=== PATIENT | male | born 1995 ===

== ENCOUNTER 2018-04-21 00:03 | Observation (INO) | payer SELFPAY ==
[2018-04-21] MEDS ORDERED: LORazepam 2 MG/ML INJ IVP ONE (00:10)
[2018-04-21] MEDS ORDERED: NS 1,000 ML IV ONE ×2 (00:10→00:11)
--- NOTE | 2018-04-21 00:14 | EDPHY ---
H & P Time Seen by Provider: 04/21/18 00:12 HPI/ROS: HPI CHIEF COMPLAINT: M1 hold, overdose, drank 2 shots of antifreeze (ethylene and Diethylene Glycol), additionally multiple pills up to 40 of Doxylamine HISTORY OF PRESENT ILLNESS: 22-year-old male presents emergency room on M1 hold by EMS for an overdose. Approximately over an hour ago he drank 2 shots of antifreeze, additionally took approximately 40 pills of Doxylamine. He presents emergency room tachycardic and agitated. He received 5 mg IV Versed by EMS. He states he did this to kill himself. According to EMS he does have a long history of mental illness. Here in the emergency room he appears agitated, tachycardic, has a hard time answering my questions. He is protecting his airway. He is not vomiting. Past Medical History: Unknown significant medical history however history depression Past Surgical History: Unknown Social History: Unknown Family History: Unknown ROS REVIEW OF SYSTEMS: Limited due to patient's mental state. Exam Constitutional agitated triage nursing summary reviewed, vital signs reviewed, awake/alert. Eyes normal conjunctivae and sclera, EOMI, PERRLA. HENT normal inspection, atraumatic, moist mucus membranes, no epistaxis, neck supple/ no meningismus, no raccoon eyes. Respiratory clear to auscultation bilaterally, normal breath sounds, no respiratory distress, no wheezing. Cardiovascular tachycardic, regular rhythm, no murmur, no edema, distal pulses normal. Gastrointestinal soft, non-tender, no rebound, no guarding, normal bowel sounds, no distension, no pulsatile mass. Genitourinary no CVA tenderness. Musculoskeletal no midline vertebral tenderness, full range of motion, no calf swelling, no tenderness of extremities, no meningismus, good pulses, neurovascularly intact. Skin pink, warm, & dry, no rash, skin atraumatic. Neurologic agitated, moves all 4 extremities equally, motor intact, sensory intact, CN II-XII intact, normal cerebellar, normal vision, normal speech. Psychiatric normal mood/affect. Heme/Lymph/Immune no lymphadenopathy. Differential Diagnosis: Includes but is not limited to in a particular order anticholinergic syndrome, acute agitation, acute intoxication, ethylene glycol poisoning Medical Decision Making: Plan for this patient 2 large-bore IVs, IV fluid bolus , IV Ativan for agitation, EKG, blood work, electrolytes, Tylenol and salicylate level. Re-evaluation: I spoke with poison Control at 12:26 a.m.. Discussed the case in detail. 1. They would like to monitor electrolytes every 3-4 hours per serial BMPs to watch bicarb. Bicarb is low may need to start treatment with formepizole, 2. 16 hr of Q 3 hr BMPs. 3. Additionally watch for QRS prolongation 4. Watch for anticholinergic syndrome IV fluids and IV benzo. 5. Send methanol and ethylene glycol send out. 6. Check serum alcohol level. 7. 16 hour Observation. Case [id number]. EKG interpretation by me on record in [facility] system. Impression time of EKG 0034, sinus tach 119 QRS noted 106. QT noted 371. No acute ischemia. Serum alcohol 0. Patient's bicarb noted to be normal on the chemistry. Will repeat his chemistry in 3 hr. Repeat EKG Spoke with Dr. Dickey who agrees to admit. Went over in detail tox recommendations. EKG interpretation by me on record in [facility] system. Impression time of EKG 2:15 a.m. This is a repeat EKG for QRS prolongation. QRS is 105. Sinus tach of 119. The QRS has went down from the previous EKG. QT 366 Critical Care: Total Critical Care Time Spent Managing this Patient: 65 Minutes. This time was spent Exclusively with this patient. This Care was exclusive of procedures. The Organ System/life at risk was neurological, cardiovascular, renal This Patient was in Critical Condition because suicide attempt with drinking Anti-freeze, Unisom OD. Source: Patient, EMS Constitutional: Initial Vital Signs Temperature (C) 37.9 C 04/21/18 00:12 Heart Rate 127 H 04/21/18 00:12 Respiratory Rate 14 04/21/18 00:12 Blood Pressure 149/85 H 04/21/18 00:12 O2 Sat (%) 96 04/21/18 00:12 O2 Delivery Mode Room Air Allergies/Adverse Reactions: No Known Allergies Allergy (Unverified 12/03/09 14:03) Home Medications: Medication Instructions Recorded Ibuprofen [Motrin (*)] 200 - 400 mg PO Q4H PRN 04/21/18 Medical Decision Making - Data Points Laboratory Results: Laboratory Results 04/21/18 00:25 04/21/18 00:25 Medications Given: Discontinued Medications Sodium Chloride (Ns) 1,000 mls @ 0 mls/hr IV ONCE ONE PRN Reason: Wide Open Stop: 04/21/18 00:11 Last Admin: 04/21/18 00:37 Dose: 1,000 mls Sodium Chloride (Ns) 1,000 mls @ 0 mls/hr IV ONCE ONE PRN Reason: Wide Open Stop: 04/21/18 00:12 Last Admin: 04/21/18 00:37 Dose: 1,000 mls Sodium Chloride (Ns) 1,000 mls @ 150 mls/hr IV CONT KATHRYN Stop: 10/18/18 02:14 Last Admin: 04/21/18 03:47 Dose: 1,000 mls Lorazepam (Ativan Injection) 1 mg IVP EDNOW ONE Stop: 04/21/18 00:11 Last Admin: 04/21/18 00:37 Dose: 1 mg Lorazepam (Ativan) 0.5 - 1 mg PO Q8HRS PRN PRN Reason: Anxiety, Able to Take PO Stop: 10/18/18 02:00 Last Admin: 04/21/18 21:02 Dose: 0.5 mg Potassium Chloride (Klor-Con) 40 meq PO ONCE ONE Stop: 04/21/18 10:57 Last Admin: 04/21/18 11:24 Dose: 40 meq Departure - Departure Disposition: [facility] Acute Clinical Impression: Overdose Qualifiers: Encounter type: initial encounter Injury intent: intentional self-harm Qualified Code(s): T50.902A - Poisoning by unspecified drugs, medicaments and biological substances, intentional self-harm, initial encounter Suicidal behavior Qualifiers: Attempted self-injury: with attempted self-injury Qualified Code(s): T14.91XA - Suicide attempt, initial encounter Condition: Critical
[2018-04-21 00:49] LABS: PLATELET COUNT 217 10^3/uL (150-400)
[2018-04-21] MEDS ORDERED: ONDANSETRON 4 MG/2 ML VIAL IVP PRN (02:01)
[2018-04-21] MEDS ORDERED: NS 1,000 ML IV SCH (02:15)
[2018-04-21] MEDS: LORazepam 0.5 MG TAB PO PRN ×2 (03:46→21:02)
--- NOTE | 2018-04-21 04:50 | GHP ---
DATE OF ADMISSION: 04/21/2018 PRIMARY CARE PHYSICIAN: Patient without a PCP listed. SOURCE: The patient provides history, is fair historian. EMR was reviewed and case discussed with ED provider. CHIEF COMPLAINT: Overdose, intentional with antifreeze and doxylamine. HISTORY OF PRESENT ILLNESS: This is a 22-year-old gentleman with past medical history significant for depression and suicide attempt 2 years ago by cutting his right arm who presents to the emergency department this morning via EMS after his brother returned home where they share an apartment with a note left behind. The patient reports that he took 2 shots of antifreeze with ethylene and diethylene glycol, as well as up to 40 tabs of doxylamine in an attempt to end his life. The patient denies any chest pain, shortness of breath, palpitations, musculoskeletal conditions, nausea, vomiting, abdominal pain, diarrhea. REVIEW OF SYSTEMS: A 10-point review of systems is negative except as noted above. ALLERGIES: No known drug allergies. HOME MEDICATIONS: Patient denies. PAST MEDICAL HISTORY: Significant for depression. The patient is not on any current medications or counseling. He does have history of suicide attempt 2 years ago by cutting his right arm as noted above. PAST SURGICAL HISTORY: Patient reports that he went to [place] for liposuction to treat his gynecomastia. FAMILY HISTORY: Negative for diabetes, CAD, psychiatric illness or suicide attempts. SOCIAL HISTORY: Patient lives with his brother. He denies any tobacco or alcohol. He does use rare marijuana. CODE STATUS: Full due to patient being on M1 hold following suicide attempt. PHYSICAL EXAMINATION: VITAL SIGNS: Upon arrival to the emergency department, blood pressure 149/85, heart rate 127, respiratory rate 14, O2 saturation 96% on room air, temperature 37.9. Vitals currently available: Blood pressure 128/ 101, heart rate 112 mm, respiratory rate 16, O2 saturation 94% on room air with temperature 37.5. GENERAL: No acute distress. The patient is lying in bed, but intermittently a little restless. He is cooperative. HEAD: Normocephalic , atraumatic. EYES: Extraocular muscles are intact. The patient does have a little bit of vertical gaze nystagmus. Pupils are slightly dilated, round, with decreased reactivity to light bilaterally. Some photophobia. No scleral icterus or conjunctival injection. ENT: Mucous membranes are quite dry. Lips are chapped and cracked. Dentition in fair condition. NECK: Supple. Trachea midline. CV: Tachycardic in the 100s. No murmurs, rubs, or gallops appreciated. RESPIRATORY: Lungs clear to auscultation bilaterally. No wheezes , rales, or rhonchi. Unlabored breathing. ABDOMEN: Obese, soft, nontender to palpation. No rebound, guarding, or masses appreciated. : No suprapubic tenderness to palpation. No Stanton catheter in place. EXTREMITIES: No cyanosis , clubbing, or edema appreciated. 2+ pedal pulses. NEURO: Grossly nonfocal. Moves all extremities. Patient does have a resting tremor in both hands and the nystagmus as noted above. PSYCH: Patient still remains depressed but he denies any active plans to harm himself at this time. Affect is quite flat and he does have some psychomotor delay in response to questions. LABORATORY STUDIES: WBC is 8.78, H and H 16.3 and 45.0, MCV 84.1, platelet count is 217. No bands. ABG; pH is 7.45, pCO2 32, PO2 79, bicarb is 22, O2 saturation 97%. Base excess -0.8. Sodium 143, potassium 4.0, chloride 108, CO2 is 22, anion gap 13, BUN 13, creatinine 0.7. GFR greater than 60, glucose 68, calcium 8.9, total bilirubin is 1.9, unconjugated 1.6. ALT is 42, AST 31, alkaline phosphatase 58, total protein 7.3, albumin 4.3. Repeat BMP is pending. Tox screen: U-tox is negative. Ethyl alcohol less than 10. Salicylates less than 1.0. Acetaminophen less than 10. Ethylene glycol, propylene glycol, methyl alcohol quant is pending and sent to [facility] for send-out rapid testing. EKG reviewed myself showing sinus tachycardia with Q-waves in the inferolateral leads. QTc is 523, QRS 106. Repeat EKG did not cross over, so I will try to obtain those records from the ED. ASSESSMENT AND PLAN: A 22-year-old gentleman with history of depression, previous suicide attempt 2 years ago, presents to the ED after he was found having ingested 40 tabs of doxylamine and several shots of antifreeze in attempt to end his life. 1. Ethylene glycol ingestion, doxylamine overdose, suicide attempt, depression. Plan: The patient admitted to ICU on an M1 hold for close monitoring. He is on suicide watch at this point. He does not endorse active desire or plan to harm himself currently. Psychiatry consultation in the morning as per day team. At this time, we will plan to follow along with Poison Control recommendations for q.3-hour bumps, monitoring bicarb status closely, as well as for any QRS prolongation. Regarding his ethylene glycol ingestion, he may require treatment with fomepizole for any acute changes. If his ethylene glycol testing returns positive from the [facility], he will require 16 hours of close ICU monitoring before he can be considered for placement in the inpatient psychiatric facility. Regarding doxylamine toxicity , we will need to monitor patient closely given his tachycardia, agitation, and for anticholinergic side effects. He has required some Ativan for his agitation. This will be made available p.r.n. 2. Hypoglycemia was reviewed with the ED provider with plans to give the patient some juice. We will plan to recheck glucose. BMP is pending and will continue to monitor closely. Patient without aspiration risk and so will continue with a regular diet as tolerated. 3. Fluid, electrolyte, nutrition. IV fluids, normal saline, electrolyte monitoring. Replacement if needed. Diet as tolerated. 4. Prophylaxis. SCDs. Low DVT risk. Holding anticoagulation. 5. Cost code status is full at this time. Patient is on an M1 hold. 6. Disposition. Patient admitted to observation status in ICU while we await results of the ethylene, propylene glycol testing from [facility], as well as for resolution of patient's anticholinergic side effects from the doxylamine. ADDENDUM - follow up call placed to poison Control after [facility] result on ethylene glycol level were available. Patient had a level of 8 with the reference range of less than 3 being normal. I spoke with [facility] and poison Control who conferred with on the on-call drawing frame tender. Given that patient had taken a combination of ethylene glycol and di ethylene glycol they do recommend that patient be monitored for full 16 hr with serial BMPs due to the fact that diethylene glycol cannot be measured. They recommend observing for any significant shifts in drop in bicarb and call back if there is any acute changes for consideration of treatment. /[id number]/MODL MTDD
--- NOTE | 2018-04-21 06:59 | CPEKG ---
Test Reason : OPEN Blood Pressure : / mmHG Vent. Rate : 119 BPM Atrial Rate : 119 BPM P-R Int : 141 ms QRS Dur : 106 ms QT Int : 371 ms P-R-T Axes : 057 095 000 degrees QTc Int : 523 ms Sinus tachycardia Inferior infarct, old Lateral leads are also involved Prolonged QT interval Confirmed by Timbo King ([id number]) on 04/21/2018 6:58:45 AM Referred By: Confirmed By:Timbo King
--- NOTE | 2018-04-21 09:51 | ASMTCMCOM ---
CM Note CM Note Notes: 22yr old male admitted for OD, Suicide attempt. He had a previous attempt 2yrs ago due to cutting. Patient lives with his brother. No PCP, medications or mental health connection. TLC to eval when medically clear. CM to follow. Date Signed: 04/21/2018 09:51 AM Electronically Signed By:Maricel Glass LCSW
[2018-04-21] MEDS ORDERED: POTASSIUM CL 20 MEQ TAB PO ONE (10:56)
--- NOTE | 2018-04-21 10:59 | HOSPPROG ---
Hospitalist Progress Note Assessment/Plan: # ethylene and diethylene overdose - level 8 - cont Q3 BMPs - no HD at this point # mild acidosis - suspect more d/t NS as AG low - stop NS, follow closely # doxylamine overdose - may be causing visual hallucinations - QT ok; mild tachycardia - follow on tele # suicide attempt - cont M1 # hypoK - replete Subjective: mild visual hallucinations Objective: Vital Signs Temp Pulse Resp BP Pulse Ox 37.0 C 91 20 148/69 H 96 04/21/18 07:33 04/21/18 10:00 04/21/18 10:00 04/21/18 10:00 04/21/18 10:00 Laboratory Results 04/21/18 09:35 04/20/18 04/21/18 04/22/18 05:59 05:59 05:59 Intake Total 2200 Output Total 850 Balance 1350 - Physical Exam Constitutional: no apparent distress, appears nourished Cardiovascular: no murmur, rub, or gallop, tachycardia, No systolic murmur, No irregularly irregular, No diastolic murmur Respiratory: no respiratory distress, no rales or rhonchi, clear to auscultation Gastrointestinal: soft, non-tender abdomen, no palpable masses, No guarding, No rebound, No distension ICD10 Worksheet Patient Problems: Problems Problem Status Onset Overdose Acute Suicidal behavior Acute
--- NOTE | 2018-04-21 12:01 | GCON ---
[facility] CONSULTATION REASON FOR ADMISSION: Suicide attempt, ingestion of ethylene glycol and doxylamine. HISTORY OF PRESENT ILLNESS: The patient is a very pleasant 22-year-old male with a past medical hist ory of depression. He has had a previous history of suicide attempt 2 years prior. He presented wit h an intentional overdose using antifreeze and 40 tabs of doxylamine. He apparently took 2 shots of antifreeze. The antifreeze had a combination of ethylene and diethylene glycol. In discussion with the patient, he states that overall he feels reasonably well. He is still having hallucinations, bot h visual and auditory. He denies any chest pain, pleuritic-type chest pain or angina equivalent. Th ere is no fever or night sweats. There is no blurred vision or double vision. REVIEW OF SYSTEMS: A 10-point review of systems is performed and negative with the exception of what is listed in HPI. PAST MEDICAL HISTORY: Significant for depression and prior previous suicide attempt. FAMILY HISTORY: Noncontributory. SOCIAL HISTORY: No history of tobacco use. No history of alcohol use. Occasional marijuana use. Luis Carlos askew lives with his brother. Has good family support. PHYSICAL EXAM: VITAL SIGNS: Blood pressure is 148/69, pulse 91, respirations 20, temperature is 37. 0, oxygen saturation 96% on 4 L. GENERAL: He is a well-developed, well-nourished, 22-year-old [place] male who is resting comfortably in no acute distress. HEENT: Eyes are PERRLA, EOMI. Throat charline ws no erythema or tonsillar hypertrophy. NECK: Supple. No cervical adenopathy. HEART: Regular ra te and rhythm without murmurs, rubs, gallops. LUNGS: Clear to auscultation. No wheeze or rhonchi. ABDOMEN: Soft, nontender. Bowel sounds are present in all 4 quadrants. EXTREMITIES: No clubbing, cyanosis, or edema. LABORATORIES: White count is 8.7, hemoglobin 16, hematocrit 45, platelet count 217. Sodium 141, pot assium 3.2, chloride 115, CO2 is 18, BUN 6, creatinine 0.5, glucose is 72. Urine drug screen is nega tive. Alcohol level is less than 10. Methyl alcohol quantitative is currently pending. Arterial bl ood gas with pH 7.45, pCO2 of 32, pO2 of 79, bicarb 23, oxygen saturation 97%. IMPRESSION: 1. Suicide attempt. 2. Acute poisoning, ethylene glycol and diethylene glycol as well as doxylamine. 3. History of depression. RECOMMENDATIONS: 1. Agree with M1 hold. 2. Will follow protocol per Poison Control, which is recommended close monitoring for 16 hours follo wing chemistries. 3. DVT and PE prophylaxis. 4. Stress ulcer prophylaxis. 5. Once medically cleared, will consult Mental Health. /[id number]/MODL
--- NOTE | 2018-04-21 23:40 | CPEKG ---
Test Reason : OPEN Blood Pressure : / mmHG Vent. Rate : 075 BPM Atrial Rate : 075 BPM P-R Int : 135 ms QRS Dur : 099 ms QT Int : 398 ms P-R-T Axes : -13 088 061 degrees QTc Int : 445 ms Sinus rhythm Confirmed by Yuri Ruggiero ([id number]) on 04/21/2018 11:40:18 PM Referred By: Confirmed By:Yuri Ruggiero
[2018-04-22 08:36] VITALS: BP 128/72
--- NOTE | 2018-04-22 10:18 | ASMTTLCEVL ---
TLC Evaluation - Basic Information Evaluation Start Date and 04/22/2018 08:55 AM Time Hospital Status Answers: M1 Hold 72-hr M1 Hold Start Date 04/20/2018 11:30 PM and Time Patient statement Notes: "I tried to kill myself. I was laying on my bed when I started to feel drowsy; like I was falling down quickly. I stood up and everything was moving. I don't know why but all of the sudden I decided I didn't want to do it anymore. I called my brother and he called 911." Narrative Notes: The patient is a 22 YO [place] north [place] male, single with no children, unemployed (unable to work due to visa), with a HX of Major Depressive D/O. He is living an apartment with his brother Vicente More ([phone]) in [place], [place]. The patient arrived via EMS on an M1 hold placed by police after patient overdosed on antifreeze and doxylamine. Per the M1 hold, "The patient states that he took two shots of antifreeze, ingested a bottle of sleeping pills, wrote a suicide note that was left for family members. He poses a risk to himself, he stated he wanted to take his life. The patient is a danger to himself. Transported to [facility] by [facility]." The patient reported that the catalyst for this attempt was "not having enrolled in school." The patient stated, "I've known since November that I needed to enroll if I was going to take classes this semester but I did not tell anyone. I didn't sign up for classes because I was just failing last semester, I didn't go to any of my finals, and I know that if I don't do good I won't be able to do anything with my life." Diagnosis History Notes: The patient reported being diagnosed with Major Depressive Disorder by a therapist he was at [facility] in 2016. The patient saw this therapist for six free sessions before being discouraged to continue by his family due to the high cost. He stated, "It was really helping; I was able to get an ROGELIO. His name is Bandage Wrapping Machine Operator and he is an [place] cattle dog." He initially sought services after his first suicide attempt by cutting his wrist. The precipitant in both attempts were school related; poor performance. Prior suicide attempts Notes: In the summer of 2015, the patient attempted suicide by cutting his wrist. At that time, he had a HX of NSSI; cutting on his upper leg. He reported poor academic performance during the spring semester of school. He traveled with his family to [place] after the attempt, in which his mother found him and bandaged his arm. He stated, "we pretended like nothing happened." The patient sought services at when he returned from [place] and his counselor was able to get him retroactively withdrawn from the previous semester and re-opened his enrollment for the upcoming semester. Prior hospitalizations Notes: The patient denied any prior hospitalizations for MH. Treatment Responses Notes: The patient saw this therapist for six free sessions before being discouraged to continue by his family due to the high cost. He stated, "It was really helping; I was able to get an ROGELIO. His name is Bandage Wrapping Machine Operator and he is an austrail[place] cattle dog." History of violence Notes: The patient denied any homicidal ideation or previous HX of violence. Therapist: none Psychiatrist: none Medications (name, dosage, route, freq uency) Notes: The patient reported that his therapist told him that medication was an option for treatment and he declined. Allergies/Reaction Notes: no known allergies Sleep Notes: The patient reported that he is falling asleep around 18:00-19:00 and waking up again at 01:00-02:00 unable to return to sleep. He is getting "alot less sleep than usual." Appetite Notes: The patient reported having "no appetite at all." Medical/Surgical history Notes: The patient reported that he had liposuction in [place] in 2016 because his father told him he had fat around his chest and that he needed to have the surgery. He stated, "I didn't want the surgery." Substance use history (frequency, intensity, his tory, duration) Notes: The patient stated he drinks ETOH with friends rarely when he is out and the amount he consumes varies. The patient reported he will drink ten-eleven drinks per drinking occasion often to intoxication. The patient stated that the first time he drank ETOH was when he was 16 years old and the last time he drank was ten days ago. Family composition Notes: The patients parents live in [place] and when they visit the patient in the they stay with him and his brother in their apartment in [place], [place]. Need for family Answers: Yes participation in patient's care Family psychiatric/substance abuse history Notes: The patient was not aware of any substance use/abuse HX or psychiatric HX in his family. Developmental history Notes: The patient denied any developmental issues or learning disabilities. The patient denied ADD or ADHD. The patient denied any TBIs concussions or LOC.The patient denied any physical abuse, emotional abuse, or sexual abuse. The patient reported his childhood was "good" with supportive parents. Abuse concerns Answers: None Marital status/children Notes: The patient is single without children. Living situation Notes: The patient lives with his brother, Vicente More ([phone]), in an apartment in [place], [place]. He is frequently visited by his parents, Page Santos ([phone]) and Vicente More (no phone), who live in [place]. Sexual history/orientation Notes: The patient reported he is "straight" and he is not currently sexually active. Peer support/family strengths Notes: The patient denied having a supportive peer group. Education level/history Notes: The patient is pursuing his BA in physics and math from the [employer]. He has approximately three semesters left to graduate. Work history Notes: The patient is unable to work due to his visa, except as a workstudy; the position would need to be less than ten hours per week. Notes: no known affiliation Legal Notes: The patient denied any legal issues. Restoration/Spiritual Notes: The patient reported none that would interfere with treatment. Leisure Notes: The patient reported enjoying playing video games, watching TV, and being with Bandage Wrapping Machine Operator. Collateral Notes: The collateral data was obtained from current [facility] ED records/staff, 27-65 M1, and family members. Patient's strengths Answers: Intelligent (Please select at least TWO strengths): Supportive/Compassionate Supportive Family TLC Evaluation - Mental Status Exam Appearance: Answers: Appropriate Clean Eye Contact: Answers: Appropriate for Culture Intermittent Mood: Answers: Depressed Sad Affect: Answers: Appropriate Congruent w/ Mood Constricted Flat Indifferent Sad Subdued Behavior: Answers: Appropriate Cooperative Fatigued Passive Withdrawn Speech: Answers: Relevant Logical Clear Coherent Soft Thought Process: Answers: Organized Oriented Goal Oriented Insight: Answers: Poor Judgement: Answers: Poor Manic Signs/Symptoms Answers: Irritability Depression Answers: Difficulty Concentrating Signs/Symptoms: Diminished Interest Diminished Pleasure Flat Affect Hopelessness Sad Mood Withdrawn Worthlessness Hallucinations: Answers: None Current Stage of Change Answers: Precontemplation Pt reported to have Answers: Yes suicidal/self-injuring ideation/behavior? Pt reported to be making Answers: No suicidal/self-injuring threats? Pt reported to have Answers: No aggression/assault ideation/behavior? Pt reported to be making Answers: No aggression/assault threats? Pt exhibits inability to Answers: No care for self/grave disability? Ideation/behavior is Answers: No chronic? Patient has a specific Answers: No plan? Pt has access to means to Answers: No execute the plan? Ideation involves Answers: Yes serious/lethal intent? Ideation has Answers: No delusional/hallucinatory content? History of Answers: Yes suicidal/self-injuring ideation, behavior, or threats? History of Answers: No aggressive/assaultive ideation, behavior, or threats? History of serious Answers: No physical harm to self/others while in treatment setting? [facility] Evaluation - Suicide/Homicide Risk Suicide Risk Factors: Answers: Anhedonia Financial Difficulties Flat Affect Hopelessness Inadequate Social Support Lack of Social Support Major Depression Prior Suicide Attempt(s) Single Homicide/violence risk Answers: None factors: Current Suicidal Answers: Yes Ideation? Current Suicidal Ideation Answers: Yes in the Past 48 Hours? Current Suicidal Ideation Answers: Yes in the Past Month? Suicide Internal Answers: Absence of Psychosis Protective Factors: Frustration Tolerance Suicide External Answers: Positive Therapeutic Protective Factors: Relationships Responsibility to Pets Ranking of patient's Answers: Severe suicidal risk: Ranking of patient's Answers: Low homicidal risk: TLC Evaluation - Wrap-up BDI Total Score: 51 BDI Question #2 Score: 3 BDI Question #9 Score: 3 BSS Total Score: N/A AXIS I Diagnosis (include DSM-V and ICD-10 codes), must also be entered in [employer], which is the source of truth. Notes: Major Depressive Disorder, single episode, severe 296.23 (f32.2) Evaluation End Date and 04/22/2018 10:15 AM Time (HH:MIR): Date Signed: 04/22/2018 10:17 AM Electronically Signed By:Devika Faith
--- NOTE | 2018-04-22 11:04 | ASMTTCLDSP ---
TLC Discharge Disposition Disposition: Answers: Admit Disposition Notes: Notes: In consultation with [facility] ED physician, Timbo King MD, [facility] ICU physician, Júnior Montiel MD and on-call [facility] psychiatrist, Demarcus Lancaster MD, all concurred that pt appears to meet 27-65 criteria requiring psychiatric hospitalization as the patient appears to be an imminent risk of harm to self/others/gravely disabled due to a mental illness condition. The patient was given the 3N prohibited belongings list while in the ED. For inpatient Demarcus Lancaster MD admission, the following psychiatrist agreed to accept patient for admission to Behavioral [facility] ([facility]): Type of Hold: Answers: M1/72-hour Hold Hold initiated by: Answers: Police Date Signed: 04/22/2018 10:32 AM Electronically Signed By:Devika Faith
--- NOTE | 2018-04-22 11:07 | GDS ---
ALL DIAGNOSES: 1. Suicide attempt. 2. Ethylene glycol and diethylene glycol overdose. 3. Mild acidosis. 4. Anticholinergic overdose. 5. Hypokalemia. 6. Visual hallucinations. HOSPITAL COURSE: This is a 22-year-old man who tried to commit suicide by drinking a small amount of antifreeze, as well as taking Unisom. He was initially admitted for observation and serial basic me tabolic panels. He showed no significant evidence of an acidosis. Poison control has been involved in this case. He had some visual hallucinations which I suspect were likely due to his anticholinerg ic overdose. He was initially slightly tachycardic. He never had a prolonged QT. His tachycardia h as resolved. At this point, he is medically cleared. He has seen been seen by [facility] and has been accepted to [facility] inpatient at [place]. He will be transferred there later today for ongoing management o f his suicide attempt. He is currently on an M1 hold. /[id number]/MODL
--- NOTE | 2018-04-22 11:56 | ASMTDCNOTE ---
Case Management Discharge Discharge Order Complete? Answers: Yes Patient to Obtain Answers: Other Notes: [facility] Behavior Health Medications Transportation Arranged Answers: [facility] Stretcher Transport will Pick (Date 04/22/2018 03:00 PM & Time) Case Management Transport Answers: Yes Form Complete Faxed Final Orders Answers: No Notes: Sent pt info in [facility] envelope Discharge Comments Notes: Patient has been discharged to [facility] psych Date Signed: 04/22/2018 11:56 AM Electronically Signed By:Maricel Glass LCSW
--- NOTE | 2018-04-22 11:57 | ASDISCHSUM ---
Discharge Information Plan Status:Psych Placement/Petitioned Medically Cleared to Leave:04/22/2018 Discharge Date:04/22/2018 CM D/C Disposition:[facility] ADT D/C Disposition: Projected Discharge Date:04/22/2018 03:00 PM Transportation at D/C:ALS/BLS Discharge Delay Reason: Follow-Up Date:04/22/2018 03:00 PM Discharge Slot:2 - 12:01 pm - 18:00 pm Final Diagnosis:Major Depressive Disorder, single episode, severe 296.23 (f32.2) Placement Information Patient Contact Information Contact Name:CAROLA Relationship:Mother Address:[address] [place] [address] Work Phone: [facility] Phone: [facility]/Zip Code:[place] [address] Email: Financial Information Financial Class:Self-Pay Primary Plan Desc:SELF PAY Primary Plan Number: Secondary Plan Desc: Secondary Plan Number: Assessment Information LACE LACE Length of stay for Answers: 1 day current admission Acuity / Level of Answers: No Care: Did the patient have an inpatient admission? Comorbidities - select Answers: Other Notes: OD, Suicide attempt all that apply # of Emergency department Answers: 1-2 visits in the last 6 months Social determinants Answers: Mental health diagnosis (anxiety, depression, pers onality disorders, etc.) Lack of community resources and/or lack of social support (no pcp, lives alone, transportation, adilson d) Score: 10 Date Signed: 04/21/2018 09:48 AM Electronically Signed By:Maricel Glass LCSW [facility] Progress Note CM Note CM Note Notes: 22yr old male admitted for OD, Suicide attempt. He had a previous attempt 2yrs ago due to cutting. Patient lives with his brother. No PCP, medications or mental health connection. TLC to eval when medically clear. CM to follow. Date Signed: 04/21/2018 09:51 AM Electronically Signed By:Maricel Glass LCSW TLC Evaluation TLC Evaluation - Basic Information Evaluation Start Date and 04/22/2018 08:55 AM Time Hospital Status Answers: M1 Hold 72-hr M1 Hold Start Date 04/20/2018 11:30 PM and Time Patient statement Notes: "I tried to kill myself. I was laying on my bed when I started to feel drowsy; like I was falling down quickly. I stood up and everything was moving. I don't know why but all of the sudden I decided I didn't want to do it anymore. I called my brother and he called 911." Narrative Notes: The patient is a 22 YO ivorian [place] ar[place] male, single with no children, unemployed (unable to work due to visa), with a HX of Major Depressive D/O. He is living an apartment with his brother Vicente More ([phone]) in [place], [place]. The patient arrived via EMS on an M1 hold placed by police after patient overdosed on antifreeze and doxylamine. Per the M1 hold, "The patient states that he took two shots of antifreeze, ingested a bottle of sleeping pills, wrote a suicide note that was left for family members. He poses a risk to himself, he stated he wanted to take his life. The patient is a danger to himself. Transported to [facility] by [facility] The patient reported that the catalyst for this attempt was "not having enrolled in school." The patient stated, "I've known since November that I needed to enroll if I was going to take classes this semester but I did not tell anyone. I didn't sign up for classes because I was just failing last semester, I didn't go to any of my finals, and I know that if I don't do good I won't be able to do anything with my life." Diagnosis History Notes: The patient reported being diagnosed with Major Depressive Disorder by a therapist he was at [facility] in 2015. The patient saw this therapist for six free sessions before being discouraged to continue by his family due to the high cost. He stated, "It was really helping; I was able to get an ROGELIO. His name is Chinese Language Professor and he is an Iraqi cattle dog." He initially sought services after his first suicide attempt by cutting his wrist. The precipitant in both attempts were school related; poor performance. Prior suicide attempts Notes: In the summer, the patient attempted suicide by cutting his wrist. At that time, he had a HX of NSSI; cutting on his upper leg. He reported poor academic performance during the spring semester of school. He traveled with his family to [place] after the attempt, in which his mother found him and bandaged his arm. He stated, "we pretended like nothing happened." The patient sought services at when he returned from [place] and his counselor was able to get him retroactively withdrawn from the previous semester and re-opened his enrollment for the upcoming semester. Prior hospitalizations Notes: The patient denied any prior hospitalizations for MH. Treatment Responses Notes: The patient saw this therapist for six free sessions before being discouraged to continue by his family due to the high cost. He stated, "It was really helping; I was able to get an ROGELIO. His name is Chinese Language Professor and he is an austrailian cattle dog." History of violence Notes: The patient denied any homicidal ideation or previous HX of violence. Therapist: none Psychiatrist: none Medications (name, dosage, route, freq uency) Notes: The patient reported that his therapist told him that medication was an option for treatment and he declined. Allergies/Reaction Notes: no known allergies Sleep Notes: The patient reported that he is falling asleep around 18:00-19:00 and waking up again at 01:00-02:00 unable to return to sleep. He is getting "alot less sleep than usual." Appetite Notes: The patient reported having "no appetite at all." Medical/Surgical history Notes: The patient reported that he had liposuction in [place] in 2017 because his father told him he had fat around his chest and that he needed to have the surgery. He stated, "I didn't want the surgery." Substance use history (frequency, intensity, his tory, duration) Notes: The patient stated he drinks ETOH with friends rarely when he is out and the amount he consumes varies. The patient reported he will drink ten-eleven drinks per drinking occasion often to intoxication. The patient stated that the first time he drank ETOH was when he was 16 years old and the last time he drank was ten days ago. Family composition Notes: The patients parents live in [place] and when they visit the patient in the [place] they stay with him and his brother in their apartment in [place], [place]. Need for family Answers: Yes participation in patient's care Family psychiatric/substance abuse history Notes: The patient was not aware of any substance use/abuse HX or psychiatric HX in his family. Developmental history Notes: The patient denied any developmental issues or learning disabilities. The patient denied ADD or ADHD. The patient denied any TBIs concussions or LOC.The patient denied any physical abuse, emotional abuse, or sexual abuse. The patient reported his childhood was "good" with supportive parents. Abuse concerns Answers: None Marital status/children Notes: The patient is single without children. Living situation Notes: The patient lives with his brother, Vicente More ([phone]), in an apartment in [place], [place]. He is frequently visited by his parents, Page Santos ([phone]) and Vicente More (no phone), who live in [place]. Sexual history/orientation Notes: The patient reported he is "straight" and he is not currently sexually active. Peer support/family strengths Notes: The patient denied having a supportive peer group. Education level/history Notes: The patient is pursuing his BA in physics and math from the [employer]. He has approximately three semesters left to graduate. Work history Notes: The patient is unable to work due to his visa, except as a workstudy; the position would need to be less than ten hours per week. Notes: no known affiliation Legal Notes: The patient denied any legal issues. Advent/Spiritual Notes: The patient reported none that would interfere with treatment. Leisure Notes: The patient reported enjoying playing video games, watching TV, and being with Chinese Language Professor. Collateral Notes: The collateral data was obtained from current [facility] ED records/staff, 27-65 M1, and family members. Patient's strengths Answers: Intelligent (Please select at least TWO strengths): Supportive/Compassionate Supportive Family TLC Evaluation - Mental Status Exam Appearance: Answers: Appropriate Clean Eye Contact: Answers: Appropriate for Culture Intermittent Mood: Answers: Depressed Sad Affect: Answers: Appropriate Congruent w/ Mood Constricted Flat Indifferent Sad Subdued Behavior: Answers: Appropriate Cooperative Fatigued Passive Withdrawn Speech: Answers: Relevant Logical Clear Coherent Soft Thought Process: Answers: Organized Oriented Goal Oriented Insight: Answers: Poor Judgement: Answers: Poor Manic Signs/Symptoms Answers: Irritability Depression Answers: Difficulty Concentrating Signs/Symptoms: Diminished Interest Diminished Pleasure Flat Affect Hopelessness Sad Mood Withdrawn Worthlessness Hallucinations: Answers: None Current Stage of Change Answers: Precontemplation Pt reported to have Answers: Yes suicidal/self-injuring ideation/behavior? Pt reported to be making Answers: No suicidal/self-injuring threats? Pt reported to have Answers: No aggression/assault ideation/behavior? Pt reported to be making Answers: No aggression/assault threats? Pt exhibits inability to Answers: No care for self/grave disability? Ideation/behavior is Answers: No chronic? Patient has a specific Answers: No plan? Pt has access to means to Answers: No execute the plan? Ideation involves Answers: Yes serious/lethal intent? Ideation has Answers: No delusional/hallucinatory content? History of Answers: Yes suicidal/self-injuring ideation, behavior, or threats? History of Answers: No aggressive/assaultive ideation, behavior, or threats? History of serious Answers: No physical harm to self/others while in treatment setting? [facility] Evaluation - Suicide/Homicide Risk Suicide Risk Factors: Answers: Anhedonia Financial Difficulties Flat Affect Hopelessness Inadequate Social Support Lack of Social Support Major Depression Prior Suicide Attempt(s) Single Homicide/violence risk Answers: None factors: Current Suicidal Answers: Yes Ideation? Current Suicidal Ideation Answers: Yes in the Past 48 Hours? Current Suicidal Ideation Answers: Yes in the Past Month? Suicide Internal Answers: Absence of Psychosis Protective Factors: Frustration Tolerance Suicide External Answers: Positive Therapeutic Protective Factors: Relationships Responsibility to Pets Ranking of patient's Answers: Severe suicidal risk: Ranking of patient's Answers: Low homicidal risk: TLC Evaluation - Wrap-up BDI Total Score: 51 BDI Question #2 Score: 3 BDI Question #9 Score: 3 BSS Total Score: N/A AXIS I Diagnosis (include DSM-V and ICD-10 codes), must also be entered in [employer], which is the source of truth. Notes: Major Depressive Disorder, single episode, severe 296.23 (f32.2) Evaluation End Date and 04/22/2018 10:15 AM Time (HH:MM): Date Signed: 04/22/2018 10:17 AM Electronically Signed By:Devika Faith TLC Discharge Disposition TLC Discharge Disposition Disposition: Answers: Admit Disposition Notes: Notes: In consultation with [facility] ED physician, Timbo King MD, [facility] ICU physician, Júnior Montiel MD and on-call [facility] psychiatrist, Demarcus Lancaster MD, all concurred that pt appears to meet 27-65 criteria requiring psychiatric hospitalization as the patient appears to be an imminent risk of harm to self/others/gravely disabled due to a mental illness condition. The patient was given the 3N prohibited belongings list while in the ED. For inpatient Demarcus Lancaster MD admission, the following psychiatrist agreed to accept patient for admission to [facility]): Type of Hold: Answers: M1/72-hour Hold Hold initiated by: Answers: Police Date Signed: 04/22/2018 10:32 AM Electronically Signed By:Devika Faith Case Management Discharge Plan Note Case Management Discharge Discharge Order Complete? Answers: Yes Patient to Obtain Answers: Other Notes: [facility] Behavior Health Medications Transportation Arranged Answers: [facility] Stretcher Transport will Pick (Date 04/22/2018 03:00 PM & Time) Case Management Transport Answers: Yes Form Complete Faxed Final Orders Answers: No Notes: Sent pt info in [facility] envelope Discharge Comments Notes: Patient has been discharged to [facility] psych Date Signed: 04/22/2018 11:56 AM Electronically Signed By:Maricel Glass LCSW Intervention Information
== END 2018-04-22 15:35 ==
LOC: EDUNIT# → EEVIPCON 00:03 → F2N 02:45
PROVIDERS: ADMIT Family Medicine; ATTEND Student in an Organized Health Care Education/Training Program
DX: T51.8X2A Toxic effect of other alcohols, intentional self-harm, initial encounter (principal); T45.0X2A Poisoning by antiallergic and antiemetic drugs, intentional self-harm, initial encounter; R00.0 Tachycardia, unspecified; R45.1 Restlessness and agitation; Z91.5 Personal history of self-harm; F32.9 Major depressive disorder, single episode, unspecified; E87.2 Acidosis; E87.6 Hypokalemia; R44.3 Hallucinations, unspecified
CPT/HCPCS: 80305; 82693-90; 84600-90; 96374; G0378; G0480; J2060